=== PATIENT | male | born 1965 | race Caucasian/White ===

== ENCOUNTER 2020-03-19 07:46 | Inpatient (IN) ==
[2020-03-19] MEDS ORDERED: Ondansetron 4 MG/2 ML VIAL IVP PRN (12:14)
[2020-03-19] MEDS ORDERED: Naloxone 0.4 MG/ML INJ IVP PRN (12:14)
[2020-03-19 13:10] LABS: Basophils % 0.2 %; Eosinophils % 0.1 %; Hematocrit 37.9 % (37.5-50.1); Hemoglobin 13.7 g/dL (12.9-16.9); Immature Granulocytes % 0.4 % (0-4); Lymphocytes # 1.3 K/mcL (0.6-4.6); Lymphocytes % 11.1 %; Mean Corpuscular HGB Conc 36.1 g/dL (31.6-35.5); Mean Corpuscular Hemoglobin 31.1 pg (28.0-33.3); Mean Corpuscular Volume 86.1 fL (83.0-100.0); Mean Platelet Volume 9.9 fL (9.4-12.4); Monocytes # 0.9 K/mcL (0.0-1.3); Monocytes % 8.1 %; Neutrophils # 9.2 K/mcL (1.6-8.9); Platelet Count 206 K/mcL (140-400); Red Cell Distribution Width 11.6 % (11.5-14.5); Segmented Neutrophils % 80.1 %; White Blood Count 11.5 K/mcL (4.3-11.1)
[2020-03-19 13:22] LABS: Alanine Aminotransferase 41 Units/L (7-52); Albumin 4.1 g/dL (3.5-5.7); Albumin/Globulin Ratio 1.4 (1.1-2.2); Alkaline Phosphatase 105 Units/L (34-104); Aspartate Amino Transferase 34 Units/L (13-39); BUN/Creatinine Ratio 35 (6-26); Bilirubin,Total 0.8 mg/dL (0.3-1.0); Blood Urea Nitrogen 19 mg/dL (6-20); Carbon Dioxide 23 mEq/L (23-29); Chloride 91 mEq/L (98-107); Glucose 130 mg/dL (70-105); INR 1.1; Magnesium 1.8 mg/dL (1.6-2.6); Osmolality,Calculated 262 (280-300); Phosphorous 2.6 mg/dL (2.7-4.5); Potassium 3.2 mEq/L (3.5-5.1); Prothrombin Time 13.2 Seconds (9.4-12.1); Sodium 124 mEq/L (136-145); Total Protein 7.1 g/dL (6.4-8.9); eGFR For African Americans > 60 (> 60); eGFR For Non-African Americans > 60 (> 60)
[2020-03-19 13:25] LABS: Activated Partial Thrombo Time 27.2 Seconds (26.0-36.0)
[2020-03-19 14:01] LABS: Folate 14.3 ng/mL (3.0-16.0)
[2020-03-19 14:40] LABS: Adenovirus Not Detected (Not Detect); Bordetella Pertussis Not Detected (Not Detect); Chlamydophila pneumoniae Not Detected (Not Detect); Coronavirus 229E Not Detected (Not Detect); Coronavirus HKU1 Not Detected (Not Detect); Coronavirus NL63 Not Detected (Not Detect); Coronavirus OC43 Not Detected (Not Detect); Human Metapneumovirus Not Detected (Not Detect); Human Rhinovirus/Enterovirus Not Detected (Not Detect); Influenza A Subtype 2009 H1 Not Detected (Not Detect); Influenza B Not Detected (Not Detect); Mycoplasma pneumoniae Not Detected (Not Detect); Parainfluenza Virus 1 Not Detected (Not Detect); Parainfluenza Virus 2 Not Detected (Not Detect); Parainfluenza Virus 3 Not Detected (Not Detect); Parainfluenza Virus 4 Not Detected (Not Detect); Respiratory Syncytial Virus Not Detected (Not Detect); SARS-CoV-2 Not Detected (Not Detect)
[2020-03-19] MEDS ORDERED: Potassium Phosphate 44 MEQ in 0.9 % Sodium Chloride 250 ML IVPB ONE (16:11)
[2020-03-19] MEDS ORDERED: *HR* LORazepam 2 MG/ML VIAL IVP PRN (16:22)
[2020-03-19] MEDS ORDERED: *HR* Dextrose 50 % in Water (Vial) 50 ML VIAL IVP PRN (16:24)
[2020-03-19] MEDS ORDERED: Dextrose Gel 15 GM/37.5 ML TUBE PO PRN ×2 (16:24)
[2020-03-19] MEDS ORDERED: D5% in Water 1,000 ML IVC PRN (16:24)
[2020-03-19] MEDS: cefTRIAXone 1,000 MG in Water for inj. (sterile) 10 ML IVP SCH (17:25)
[2020-03-19] MEDS: 0.9 % Sodium Chloride 1,000 ML IVC SCH ×2 (17:25→23:13)
[2020-03-19] MEDS: *HR* Heparin 5,000 UNIT/ML VIAL SQ SCH (17:25)
[2020-03-19] MEDS: Sucralfate 1 GM TABLET PO SCH ×2 (17:25→20:07)
[2020-03-19] MEDS: Primidone 50 MG TABLET PO SCH ×2 (17:25→23:11)
[2020-03-19] MEDS: carBAMazepine 200 MG TABLET PO SCH ×2 (17:25→23:11)
[2020-03-19 17:56] LABS: Estimated Average Glucose 111 mg/dl; Hemoglobin A1C 5.5 %
[2020-03-19] MEDS: Insulin LISPRO 300 UNITS/3 ML VIAL SUBQ SCH ×2 (17:56→22:55)
[2020-03-19] MEDS: chlorproMAZINE 25 MG TABLET PO SCH ×2 (18:23→20:06)
[2020-03-19 18:56] LABS: Bilirubin,Urine Negative (Negative); Blood,Urine Negative (Negative); Clarity,Urine Clear (Clear); Color,Urine Yellow (Yellow); Glucose,Urine (UA) Normal (Normal); Ketones,Urine 20 mg/dL (Negative); Leukocyte Esterase,Urine Negative (Negative); Nitrite,Urine Negative (Negative); PH,Urine 6.5 pH Units (5.0-8.0); Protein,Urine Trace mg/dL (Neg-Trace); Specific Gravity,Urine 1.026 (1.010-1.025); Urobilinogen,Urine Normal (Normal)
[2020-03-19] MEDS: clonazePAM 0.5 MG TABLET PO SCH (20:07)
[2020-03-19] MEDS: Lactulose Oral Soln 20 GM/30 ML UDC PO SCH (20:07)
[2020-03-20] MEDS: Insulin LISPRO 300 UNITS/3 ML VIAL SUBQ SCH ×2 (05:05→12:52)
[2020-03-20] MEDS: *HR* Heparin 5,000 UNIT/ML VIAL SQ SCH ×2 (05:08→16:40)
[2020-03-20 06:26] LABS: Basophils % 0.2 %; Eosinophils % 0.2 %; Hematocrit 38.9 % (37.5-50.1); Hemoglobin 13.8 g/dL (12.9-16.9); Immature Granulocytes % 0.6 % (0-4); Lymphocytes # 1.2 K/mcL (0.6-4.6); Lymphocytes % 10.2 %; Mean Corpuscular HGB Conc 35.5 g/dL (31.6-35.5); Mean Corpuscular Volume 87.4 fL (83.0-100.0); Mean Platelet Volume 10.1 fL (9.4-12.4); Monocytes # 1.2 K/mcL (0.0-1.3); Monocytes % 9.7 %; Neutrophils # 9.5 K/mcL (1.6-8.9); Platelet Count 232 K/mcL (140-400); Red Blood Count 4.45 M/mcL (4.19-5.50); Red Cell Distribution Width 11.8 % (11.5-14.5); Segmented Neutrophils % 79.1 %
[2020-03-20 06:42] LABS: Alanine Aminotransferase 57 Units/L (7-52); Albumin/Globulin Ratio 1.3 (1.1-2.2); Alkaline Phosphatase 103 Units/L (34-104); Aspartate Amino Transferase 39 Units/L (13-39); BUN/Creatinine Ratio 38 (6-26); Bilirubin,Total 0.6 mg/dL (0.3-1.0); Blood Urea Nitrogen 23 mg/dL (6-20); Calcium 9.2 mg/dL (8.6-10.3); Carbon Dioxide 22 mEq/L (23-29); Chloride 97 mEq/L (98-107); Globulin 3.2 g/dL (2.4-3.5); Glucose 139 mg/dL (70-105); Osmolality,Calculated 276 (280-300); Phosphorous 3.3 mg/dL (2.7-4.5); Potassium 3.6 mEq/L (3.5-5.1); Sodium 130 mEq/L (136-145); Total Protein 7.2 g/dL (6.4-8.9); eGFR For African Americans > 60 (> 60); eGFR For Non-African Americans > 60 (> 60)
[2020-03-20] MEDS: carBAMazepine 200 MG TABLET PO SCH ×3 (08:02→23:08)
[2020-03-20] MEDS: Lactulose Oral Soln 20 GM/30 ML UDC PO SCH ×2 (08:02→19:46)
[2020-03-20] MEDS: Sucralfate 1 GM TABLET PO SCH ×4 (08:04→19:47)
[2020-03-20] MEDS: clonazePAM 0.5 MG TABLET PO SCH ×2 (08:04→19:47)
[2020-03-20] MEDS: chlorproMAZINE 25 MG TABLET PO SCH ×4 (08:04→21:30)
[2020-03-20] MEDS: Primidone 50 MG TABLET PO SCH ×3 (08:05→23:08)
[2020-03-20] MEDS ORDERED: Perflutren Lipid Microsphere 1.3 ML in 0.9 % Sodium Chloride 8.7 ML IVP PRN (08:40)
[2020-03-20] MEDS ORDERED: *HR* LORazepam 2 MG/ML VIAL IVP ONE ×2 (09:28→14:26)
[2020-03-20] MEDS: cefTRIAXone 1,000 MG in Water for inj. (sterile) 10 ML IVP SCH (15:33)
[2020-03-20] MEDS: Gabapentin 100 MG CAPSULE PO SCH (21:25)
[2020-03-20] MEDS: PAPAYA ENZYME PO SCH (21:26)
[2020-03-20] MEDS: hydrOXYzine pamoate 25 MG CAPSULE PO SCH (21:31)
[2020-03-21 01:12] LABS: Basophils # 0.1 K/mcL (0.0-0.2); Basophils % 0.5 %; Eosinophils # 0.1 K/mcL (0.0-0.6); Eosinophils % 0.8 %; Hematocrit 38.9 % (37.5-50.1); Hemoglobin 13.6 g/dL (12.9-16.9); Immature Granulocytes % 0.5 % (0-4); Lymphocytes # 2.2 K/mcL (0.6-4.6); Lymphocytes % 21.9 %; Mean Corpuscular Hemoglobin 30.9 pg (28.0-33.3); Mean Corpuscular Volume 88.4 fL (83.0-100.0); Mean Platelet Volume 9.9 fL (9.4-12.4); Monocytes % 9.5 %; Neutrophils # 6.7 K/mcL (1.6-8.9); Platelet Count 200 K/mcL (140-400); Red Cell Distribution Width 11.9 % (11.5-14.5); Segmented Neutrophils % 66.8 %
[2020-03-21 01:30] LABS: BUN/Creatinine Ratio 41 (6-26); Blood Urea Nitrogen 26 mg/dL (6-20); Calcium 8.8 mg/dL (8.6-10.3); Carbon Dioxide 24 mEq/L (23-29); Chloride 99 mEq/L (98-107); Glucose 144 mg/dL (70-105); Magnesium 2.1 mg/dL (1.6-2.6); Osmolality,Calculated 279 (280-300); Potassium 3.4 mEq/L (3.5-5.1); Sodium 131 mEq/L (136-145); eGFR For African Americans > 60 (> 60); eGFR For Non-African Americans > 60 (> 60)
[2020-03-21] MEDS: *HR* Heparin 5,000 UNIT/ML VIAL SQ SCH ×2 (03:32→16:41)
[2020-03-21] MEDS: chlorproMAZINE 25 MG TABLET PO SCH ×6 (07:46→22:01)
[2020-03-21] MEDS: hydrOXYzine pamoate 25 MG CAPSULE PO SCH ×2 (07:46→22:00)
[2020-03-21] MEDS: Loratadine 10 MG TABLET PO SCH (07:47)
[2020-03-21] MEDS: carBAMazepine 200 MG TABLET PO SCH ×2 (07:47→16:39)
[2020-03-21] MEDS: Cholecalciferol (D-3) 1,000 UNIT (25MCG) TABLET PO SCH (07:47)
[2020-03-21] MEDS: Sucralfate 1 GM TABLET PO SCH ×4 (07:47→22:00)
[2020-03-21] MEDS: Multivit/Ca/Min/Fe/FA 1 TAB TABLET PO SCH (07:47)
[2020-03-21] MEDS: Lactobacillus 1 EACH CAP.SPRINK PO SCH (07:47)
[2020-03-21] MEDS: Primidone 50 MG TABLET PO SCH ×2 (07:47→16:40)
[2020-03-21] MEDS: clonazePAM 0.5 MG TABLET PO SCH ×2 (07:47→22:00)
[2020-03-21] MEDS: Lactulose Oral Soln 20 GM/30 ML UDC PO SCH ×2 (07:48→22:01)
[2020-03-21] MEDS: PAPAYA ENZYME PO SCH (07:48)
[2020-03-21 12:52] LABS: Phenobarbital (Reference Lab) 4.4 ug/mL (15.0-40.0)
[2020-03-21] MEDS: cefTRIAXone 1,000 MG in Water for inj. (sterile) 10 ML IVP SCH (16:41)
[2020-03-21] MEDS: Gabapentin 100 MG CAPSULE PO SCH (22:01)
[2020-03-22] MEDS: Lactulose Oral Soln 20 GM/30 ML UDC PO SCH ×3 (00:58→21:42)
[2020-03-22] MEDS: Gabapentin 100 MG CAPSULE PO SCH ×2 (00:58→21:41)
[2020-03-22] MEDS: Primidone 50 MG TABLET PO SCH ×3 (01:08→15:20)
[2020-03-22] MEDS: carBAMazepine 200 MG TABLET PO SCH ×3 (01:09→15:20)
[2020-03-22] MEDS: *HR* Heparin 5,000 UNIT/ML VIAL SQ SCH ×2 (06:11→16:57)
[2020-03-22 06:21] LABS: Basophils # 0.1 K/mcL (0.0-0.2); Basophils % 0.7 %; Eosinophils # 0.4 K/mcL (0.0-0.6); Eosinophils % 3.8 %; Hemoglobin 12.9 g/dL (12.9-16.9); Immature Granulocytes % 0.6 % (0-4); Lymphocytes % 20.2 %; Mean Corpuscular HGB Conc 34.9 g/dL (31.6-35.5); Mean Corpuscular Hemoglobin 30.9 pg (28.0-33.3); Mean Corpuscular Volume 88.7 fL (83.0-100.0); Monocytes # 0.8 K/mcL (0.0-1.3); Monocytes % 8.4 %; Neutrophils # 6.4 K/mcL (1.6-8.9); Platelet Count 228 K/mcL (140-400); Red Blood Count 4.17 M/mcL (4.19-5.50); Red Cell Distribution Width 11.9 % (11.5-14.5); Segmented Neutrophils % 66.3 %; White Blood Count 9.7 K/mcL (4.3-11.1)
[2020-03-22 06:48] LABS: BUN/Creatinine Ratio 47 (6-26); Blood Urea Nitrogen 29 mg/dL (6-20); Calcium 8.9 mg/dL (8.6-10.3); Carbon Dioxide 25 mEq/L (23-29); Chloride 98 mEq/L (98-107); Glucose 136 mg/dL (70-105); Osmolality,Calculated 282 (280-300); Potassium 3.4 mEq/L (3.5-5.1); Sodium 132 mEq/L (136-145); eGFR For African Americans > 60 (> 60); eGFR For Non-African Americans > 60 (> 60)
[2020-03-22] MEDS: Lactobacillus 1 EACH CAP.SPRINK PO SCH (08:27)
[2020-03-22] MEDS: hydrOXYzine pamoate 25 MG CAPSULE PO SCH ×2 (08:28→21:41)
[2020-03-22] MEDS: chlorproMAZINE 25 MG TABLET PO SCH ×4 (08:28→21:41)
[2020-03-22] MEDS: Cholecalciferol (D-3) 1,000 UNIT (25MCG) TABLET PO SCH (08:28)
[2020-03-22] MEDS: Loratadine 10 MG TABLET PO SCH (08:28)
[2020-03-22] MEDS: clonazePAM 0.5 MG TABLET PO SCH ×2 (08:29→21:41)
[2020-03-22] MEDS: Multivit/Ca/Min/Fe/FA 1 TAB TABLET PO SCH (08:29)
[2020-03-22] MEDS: Sucralfate 1 GM TABLET PO SCH ×4 (08:29→21:41)
[2020-03-22] MEDS: CABERGOLINE 0.25 MG PO SCH (08:55)
[2020-03-22] MEDS: cefTRIAXone 1,000 MG in Water for inj. (sterile) 10 ML IVP SCH (15:20)
[2020-03-22] MEDS ORDERED: 0.9 % Sodium Chloride 1,000 ML IVC SCH (19:45)
[2020-03-22] MEDS ORDERED: 0.9 % Sodium Chloride 1,000 ML IVC ONE (19:46)
[2020-03-23] MEDS: carBAMazepine 200 MG TABLET PO SCH ×4 (01:52→23:56)
[2020-03-23] MEDS: Primidone 50 MG TABLET PO SCH ×4 (01:52→23:57)
[2020-03-23] MEDS: *HR* Heparin 5,000 UNIT/ML VIAL SQ SCH ×2 (05:39→17:35)
[2020-03-23 06:55] LABS: Basophils # 0.1 K/mcL (0.0-0.2); Basophils % 0.9 %; Eosinophils # 0.4 K/mcL (0.0-0.6); Eosinophils % 5.3 %; Hematocrit 35.6 % (37.5-50.1); Hemoglobin 12.1 g/dL (12.9-16.9); Immature Granulocytes % 1.3 % (0-4); Lymphocytes # 1.9 K/mcL (0.6-4.6); Lymphocytes % 24.6 %; Mean Corpuscular Volume 88.1 fL (83.0-100.0); Mean Platelet Volume 9.6 fL (9.4-12.4); Monocytes # 0.6 K/mcL (0.0-1.3); Monocytes % 8.1 %; Neutrophils # 4.6 K/mcL (1.6-8.9); Platelet Count 238 K/mcL (140-400); Red Blood Count 4.04 M/mcL (4.19-5.50); Segmented Neutrophils % 59.8 %; White Blood Count 7.7 K/mcL (4.3-11.1)
[2020-03-23 07:11] LABS: BUN/Creatinine Ratio 31 (6-26); Blood Urea Nitrogen 17 mg/dL (6-20); Calcium 8.5 mg/dL (8.6-10.3); Carbon Dioxide 28 mEq/L (23-29); Chloride 97 mEq/L (98-107); Glucose 125 mg/dL (70-105); Magnesium 1.9 mg/dL (1.6-2.6); Osmolality,Calculated 275 (280-300); Potassium 3.4 mEq/L (3.5-5.1); Sodium 131 mEq/L (136-145); eGFR For African Americans > 60 (> 60); eGFR For Non-African Americans > 60 (> 60)
[2020-03-23] MEDS: Sucralfate 1 GM TABLET PO SCH ×4 (07:46→21:47)
[2020-03-23] MEDS: Cholecalciferol (D-3) 1,000 UNIT (25MCG) TABLET PO SCH (07:47)
[2020-03-23] MEDS: clonazePAM 0.5 MG TABLET PO SCH ×2 (07:47→21:46)
[2020-03-23] MEDS: Multivit/Ca/Min/Fe/FA 1 TAB TABLET PO SCH (07:47)
[2020-03-23] MEDS: Loratadine 10 MG TABLET PO SCH (07:47)
[2020-03-23] MEDS: chlorproMAZINE 25 MG TABLET PO SCH ×3 (07:47→21:48)
[2020-03-23] MEDS: Lactobacillus 1 EACH CAP.SPRINK PO SCH (07:47)
[2020-03-23] MEDS: Lactulose Oral Soln 20 GM/30 ML UDC PO SCH ×2 (07:48→21:37)
[2020-03-23] MEDS: hydrOXYzine pamoate 25 MG CAPSULE PO SCH ×2 (08:21→21:48)
[2020-03-23] MEDS ORDERED: Psyllium 1 PACKET POWD.PACK PO PRN (11:54)
[2020-03-23] MEDS: cefTRIAXone 1,000 MG in Water for inj. (sterile) 10 ML IVP SCH (17:35)
[2020-03-23] MEDS ORDERED: *HR* HYDROcodone/Acet 5/325 mg TABLET PO PRN (18:08)
[2020-03-23] MEDS: polyethylene glycoL 3350 17 GM POWD.PACK PO SCH (21:36)
[2020-03-23] MEDS: Gabapentin 100 MG CAPSULE PO SCH (21:46)
[2020-03-24] MEDS: *HR* Heparin 5,000 UNIT/ML VIAL SQ SCH ×2 (06:52→17:25)
[2020-03-24] MEDS: Sucralfate 1 GM TABLET PO SCH ×4 (06:52→21:12)
[2020-03-24 07:07] LABS: Basophils # 0.1 K/mcL (0.0-0.2); Basophils % 1.1 %; Eosinophils # 0.5 K/mcL (0.0-0.6); Eosinophils % 5.2 %; Hematocrit 35.2 % (37.5-50.1); Immature Granulocytes % 1.5 % (0-4); Lymphocytes # 1.7 K/mcL (0.6-4.6); Lymphocytes % 19.1 %; Mean Corpuscular HGB Conc 34.1 g/dL (31.6-35.5); Mean Corpuscular Hemoglobin 30.5 pg (28.0-33.3); Mean Corpuscular Volume 89.3 fL (83.0-100.0); Mean Platelet Volume 9.4 fL (9.4-12.4); Monocytes # 0.7 K/mcL (0.0-1.3); Monocytes % 7.7 %; Neutrophils # 5.9 K/mcL (1.6-8.9); Platelet Count 272 K/mcL (140-400); Red Blood Count 3.94 M/mcL (4.19-5.50); Red Cell Distribution Width 11.8 % (11.5-14.5); Segmented Neutrophils % 65.4 %; White Blood Count 9.1 K/mcL (4.3-11.1)
[2020-03-24 07:30] LABS: BUN/Creatinine Ratio 37 (6-26); Blood Urea Nitrogen 18 mg/dL (6-20); Calcium 8.6 mg/dL (8.6-10.3); Carbon Dioxide 27 mEq/L (23-29); Chloride 95 mEq/L (98-107); Glucose 121 mg/dL (70-105); Magnesium 1.8 mg/dL (1.6-2.6); Osmolality,Calculated 273 (280-300); Potassium 3.3 mEq/L (3.5-5.1); Sodium 130 mEq/L (136-145); eGFR For African Americans > 60 (> 60); eGFR For Non-African Americans > 60 (> 60)
[2020-03-24] MEDS: Lactobacillus 1 EACH CAP.SPRINK PO SCH (08:57)
[2020-03-24] MEDS: carBAMazepine 200 MG TABLET PO SCH ×2 (08:57→15:37)
[2020-03-24] MEDS: clonazePAM 0.5 MG TABLET PO SCH ×2 (08:57→21:12)
[2020-03-24] MEDS: Primidone 50 MG TABLET PO SCH ×2 (08:57→15:37)
[2020-03-24] MEDS: Lactulose Oral Soln 20 GM/30 ML UDC PO SCH ×2 (08:58→21:14)
[2020-03-24] MEDS: Loratadine 10 MG TABLET PO SCH (08:58)
[2020-03-24] MEDS: chlorproMAZINE 25 MG TABLET PO SCH ×3 (08:58→21:12)
[2020-03-24] MEDS: hydrOXYzine pamoate 25 MG CAPSULE PO SCH ×2 (08:58→21:12)
[2020-03-24] MEDS: polyethylene glycoL 3350 17 GM POWD.PACK PO SCH ×2 (08:58→21:14)
[2020-03-24] MEDS: Multivit/Ca/Min/Fe/FA 1 TAB TABLET PO SCH (08:58)
[2020-03-24] MEDS: Cholecalciferol (D-3) 1,000 UNIT (25MCG) TABLET PO SCH (08:58)
[2020-03-24] MEDS: Acetaminophen 325 MG TABLET PO PRN ×2 (11:49→21:34)
[2020-03-24] MEDS ORDERED: Acetaminophen 325 MG TABLET PO SCH (12:00)
[2020-03-24] MEDS: cefTRIAXone 1,000 MG in Water for inj. (sterile) 10 ML IVP SCH (17:25)
[2020-03-24] MEDS: Gabapentin 100 MG CAPSULE PO SCH (21:14)
[2020-03-25] MEDS: Primidone 50 MG TABLET PO SCH ×2 (00:12→08:26)
[2020-03-25] MEDS: carBAMazepine 200 MG TABLET PO SCH ×2 (00:12→08:26)
[2020-03-25] MEDS: *HR* Heparin 5,000 UNIT/ML VIAL SQ SCH (06:02)
[2020-03-25 07:54] VITALS: BP 130/82
[2020-03-25] MEDS: hydrOXYzine pamoate 25 MG CAPSULE PO SCH (08:25)
[2020-03-25] MEDS: clonazePAM 0.5 MG TABLET PO SCH (08:25)
[2020-03-25] MEDS: Cholecalciferol (D-3) 1,000 UNIT (25MCG) TABLET PO SCH (08:25)
[2020-03-25] MEDS: Sucralfate 1 GM TABLET PO SCH (08:25)
[2020-03-25] MEDS: Loratadine 10 MG TABLET PO SCH (08:26)
[2020-03-25] MEDS: Lactobacillus 1 EACH CAP.SPRINK PO SCH (08:26)
[2020-03-25] MEDS: Multivit/Ca/Min/Fe/FA 1 TAB TABLET PO SCH (08:27)
[2020-03-25] MEDS: chlorproMAZINE 25 MG TABLET PO SCH (08:27)
[2020-03-25] MEDS: polyethylene glycoL 3350 17 GM POWD.PACK PO SCH (08:31)
[2020-03-25] MEDS: Lactulose Oral Soln 20 GM/30 ML UDC PO SCH (08:31)
[2020-03-25] MEDS: Acetaminophen 325 MG TABLET PO PRN (08:49)
[2020-03-25 08:58] LABS: BUN/Creatinine Ratio 28 (6-26); Blood Urea Nitrogen 15 mg/dL (6-20); Calcium 8.6 mg/dL (8.6-10.3); Carbon Dioxide 25 mEq/L (23-29); Chloride 95 mEq/L (98-107); Glucose 117 mg/dL (70-105); Osmolality,Calculated 268 (280-300); Potassium 4.5 mEq/L (3.5-5.1); Sodium 128 mEq/L (136-145); eGFR For African Americans > 60 (> 60); eGFR For Non-African Americans > 60 (> 60)
[2020-03-25] MEDS: CABERGOLINE 0.25 MG PO SCH (09:23)
== END 2020-03-25 11:52 | disposition home health service (06) | DRG 872 ==
LOC: 3BNU → SUATTDRO 09:04
PROVIDERS: ADMIT Internal Medicine; ATTEND Internal Medicine